=== PATIENT | female | born 1950 | race Asian ===

== ENCOUNTER 2020-08-18 03:46 | Emergency (ER) | payer MEDICARE ==
[2020-08-18] MEDS ORDERED: Acetaminophen 500 MG TAB ONE (04:22)
[2020-08-18 05:15] LABS: #Basophils 0.1 10x3/uL (0.0-0.2); #Monocytes 0.6 10x3/uL (0.0-1.1); #Neutrophils 14.8 10x3/uL (1.5-8.4); %Basophils 0.3 % (0.0-2.0); %Lymphocytes 9.6 % (18.0-47.0); %Monocytes 3.5 % (0.0-10.0); %Neutrophils 86.3 % (40.0-75.0); Hemoglobin 11.9 g/dL (12.0-15.5); Mean Corpuscular HGB CONC 33.4 g/dL (32.0-36.0); Mean Corpuscular Hemoglobin 27.9 pg (27.0-33.0); Mean Corpuscular Volume 83.6 fl (81.6-98.3); Mean Platelet Volume 12.3 fl (7.4-10.4); Platelet Count 248 10x3/uL (150-450); RBC Distribution Width 13.9 % (11.5-14.5); Red Blood Cell (RBC) Count 4.26 10x6/uL (3.90-5.03); White Blood Cell (WBC) Count 17.2 10x3/uL (3.5-10.5)
[2020-08-18 05:23] LABS: ALT (SGPT) 23 U/L (8-55); AST (SGOT) 23 U/L (5-34); Albumin 4.7 g/dL (3.4-4.8); Alkaline Phosphatase 88 U/L (40-110); Anion Gap 15 mmol/L (10-20); BUN (Urea Nitrogen) 15 mg/dL (9.8-20.1); Bilirubin, Total 0.6 mg/dL (0.2-1.2); Calc. Creatinine Clearance 0 mL/min (70-130); Carbon Dioxide 24 mmol/L (23-31); Chloride 104 mmol/L (98-107); Globulin 3.9 g/dL (2.4-3.5); Glucose 189 mg/dL (80-115); Potassium 4.3 mmol/L (3.5-5.1); Protein, Total 8.6 g/dL (5.8-8.1); Sodium 139 mmol/L (136-145)
[2020-08-18] MEDS ORDERED: Clindamycin 150 MG CAP ONE (05:38)
[2020-08-18 06:10] LABS: Bilirubin Neg (Negative); Blood, Urine 10 (Negative); Clarity Clear (Clear); Glucose, Urine (Dipstick) Normal (Negative); Ketone, Urine Negative (Negative); Leukocyte 100 (Negative); Nitrite Negative (Negative); Protein, Urine (Dipstick) 30 mg/dl (Neg-Trace); Urobilinogen Normal mg/dL (Less than 2); pH, Urine 6.5 (5.0-9.0)
[2020-08-18 06:16] LABS: Bacteria/HPF 1+ HPF (None Seen); RBC/HPF 0-3 HPF (0-3)
[2020-08-18 06:17] LABS: Mucous/LPF 1+ LPF (<2+)
== END 2020-08-18 05:54 | disposition home or self-care (01) ==
LOC: CSHERS 03:46
DX: L03.116 Cellulitis of left lower limb (principal); I10 Essential (primary) hypertension; Z79.899 Other long term (current) drug therapy; Z79.82 Long term (current) use of aspirin
CPT/HCPCS: 36415; 71045; 80053; 81003; 81015; 83605; 83880; 84443; 84484; 85025; 87040; 87086; 93005

== ENCOUNTER 2021-04-18 09:08 | Outpatient (CLI) | payer OTHER | END 2021-04-18 09:09 | disposition home or self-care (01) | LOC: CSHMRI 09:08 | PROVIDERS: ATTEND Neurological Surgery | DX: M54.50 Low back pain, unspecified (principal); Z98.890 Other specified postprocedural states; M47.816 Spondylosis without myelopathy or radiculopathy, lumbar region; R19.02 Left upper quadrant abdominal swelling, mass and lump | CPT/HCPCS: 72158 ==

== ENCOUNTER 2023-04-03 15:09 | Outpatient (CLI) | payer OTHER | END 2023-04-03 15:10 | disposition home or self-care (01) | LOC: CSHMAMMO 15:09 | PROVIDERS: ATTEND Family Medicine | DX: Z12.31 Encounter for screening mammogram for malignant neoplasm of breast (principal); Z91.89 Other specified personal risk factors, not elsewhere classified | CPT/HCPCS: 77063; 77067 ==

== ENCOUNTER 2023-11-15 09:10 | Outpatient (CLI) | payer OTHER | END 2023-11-15 09:11 | disposition home or self-care (01) | LOC: CSHMRI 09:10 | PROVIDERS: ATTEND Orthopaedic Surgery Hand Surgery | DX: S63.641A Sprain of metacarpophalangeal joint of right thumb, initial encounter (principal) ==

== ENCOUNTER 2024-04-16 09:02 | Outpatient (CLI) | payer OTHER | END 2024-04-16 09:03 | disposition home or self-care (01) | LOC: CSHMAMMO 09:02 | PROVIDERS: ATTEND Family Medicine | DX: Z12.31 Encounter for screening mammogram for malignant neoplasm of breast (principal); Z91.89 Other specified personal risk factors, not elsewhere classified | CPT/HCPCS: 77063; 77067 ==